=== PATIENT | male | born 1945 | race African-American/Black ===

== ENCOUNTER 2020-02-26 05:52 | Inpatient (IN) | payer OTHER ==
[2020-02-24 12:47] VITALS: BMI 30.1
--- OUTSIDE RECORDS SUMMARY | 2020-02-26 05:56 | XMS ---
:1945 Author Organization [facility] Support Name Relationship Address Phone RE Unavailable Unavailable Unavailable [employer] [address] [phone] [place] [address] Re-disclosure Warning The records that you are about to access may contain information from federally- assisted alcohol or drug abuse programs. If such information is present, then the following federally mandated warning applies: This information has been disclosed to you from records protected by federal confidentiality rules (42 CFR part 2). The federal rules prohibit you from making any further disclosure of this information unless further disclosure is expressly permitted by the written consent of the person to whom it pertains or as otherwise permitted by 42 CFR part 2. A general authorization for the release of medical or other information is NOT sufficient for this purpose. The Federal rules restrict any use of the information to criminally investigate or prosecute any alcohol or drug abuse patient.The records that you are about to access may contain highly sensitive health information, the redisclosure of which is protected by Article 27-F of the [facility] Public Health law. If you continue you may haveaccess to information: Regarding HIV / AIDS; Provided by facilities licensed or operated by the [facility] Office of Mental Health; or Provided by the [facility] Office for People With Developmental Disabilities. If such information is present, then the following [facility] mandated warning applies: This information has been disclosed to you from confidential records which are protected by state law. State law prohibits you from making any further disclosure of this information without the specific written consent of the person to whom it pertains, or as otherwise permitted by law. Any unauthorized further disclosure in violation of state law may result in a fine or fci sentence or both. A general authorization for the release of medical or other information is NOT sufficient authorization for further disclosure. Insurance Providers Payer name Policy type Policy ID Covered Covered democrat's Policy P kane / Coverage democrat ID relationship to [employer] ormation type padron HIP MEDICARE [id number] 1 Results ID Date Data Source [id number] 02/21/2020 11:18:00 AM EDT [facility] Name Value Range Interpretation Description Data Sup porting Code Source(s) Document(s ) SARS [facility] coronavirus 2 RNA This lab was ordered by [facility] and reported by [facility]. Procedure
[2020-02-26] MEDS ORDERED: CEFAZOLIN 2 GM/D5W 2 GM/50 ML ML IVPB ONE (06:33)
[2020-02-26] MEDS ORDERED: VANCOMYCIN 1 GRAM (PRE-DOCKED) 1,000 MG/250 ML BAG IVPB ONE (06:33)
[2020-02-26 07:23] LABS: ALBUMIN 4.1 g/dl (3.4-5.0); BLOOD UREA NITROGEN 13.5 mg/dL (7-18); CALCIUM 9.2 mg/dL (8.5-10.1); POTASSIUM 4.2 mmol/L (3.5-5.1)
[2020-02-26 07:28] LABS: BILIRUBIN,TOTAL 0.6 mg/dL (0.2-1); CREATININE 1.1 mg/dL (0.55-1.3); TOT PROT 7.5 g/dl (6.4-8.2)
[2020-02-26] MEDS ORDERED: MIDAZOLAM HCL 2 MG/2 ML SINGLE DOSE VIAL ONE (07:28)
[2020-02-26] MEDS ORDERED: BUPIVACAINE LIPOSOME/PF (EXPAREL) 266 MG/20 ML VIAL ONE ×2 (07:28→07:41)
[2020-02-26] MEDS ORDERED: SODIUM CHLORIDE 0.9% P/F 10 ML VIAL IJ ONE (07:28)
[2020-02-26] MEDS ORDERED: BUPIVACAINE HCL/PF 0.5% (5 MG/ML) 30 ML VIAL IJ ONE (07:28)
[2020-02-26] MEDS ORDERED: PROPOFOL 20 ML ONE ×2 (07:48→08:42)
[2020-02-26] MEDS ORDERED: VANCOMYCIN 1,000 MG VIAL (RESTRICTED TO ID ONLY) ONE (07:49)
[2020-02-26] MEDS ORDERED: ceFAZolin SODIUM 1 GM VIAL ONE ×2 (07:49→11:00)
[2020-02-26] MEDS ORDERED: ROPIVACAINE HCL 0.5% 30ML VIAL ONE (07:50)
--- NOTE | 2020-02-26 07:55 | HP ---
History & Physical Update - History History: No Change - Physical Physical: No Change - Assessment Assessment: No Change - Plan Plan: No Change
[2020-02-26] MEDS ORDERED: EPHEDRINE SULFATE/0.9% NACL/PF 50 MG/10 ML SYRINGE NR ONE (08:16)
[2020-02-26] MEDS ORDERED: BUPIVACAINE HCL/PF 0.5% (5MG/ML) 10 ML VIAL ONE (08:19)
[2020-02-26] MEDS ORDERED: TRANEXAMIC ACID 1000 MG/10 ML VIAL ONE (08:47)
[2020-02-26] MEDS ORDERED: KETOROLAC TROMETHAMINE 30 MG/1 ML VIAL ONE ×2 (10:42→10:49)
[2020-02-26] MEDS ORDERED: DEXAMETHASONE SOD PHOSPHATE 4 MG/1 ML VIAL ONE (11:03)
[2020-02-26] MEDS ORDERED: ONDANSETRON 4 MG/2 ML VIAL ONE ×2 (11:03→12:27)
[2020-02-26] MEDS ORDERED: LIDOCAINE HCL 1%, 10 MG/ML (20ML VIAL) ONE (11:22)
[2020-02-26] MEDS ORDERED: MAG HYDROX/AL HYDROX/SIMETH 30 ML UNIT-DOSE CUP PO PRN (11:53)
[2020-02-26] MEDS ORDERED: CELECOXIB 200 MG CAPSULE PO ONE (11:53)
[2020-02-26] MEDS ORDERED: MAGNESIUM HYDROX 2400MG/30ML ORAL SUSPENSION 30 ML CUP PO PRN (11:53)
[2020-02-26] MEDS ORDERED: ONDANSETRON 4 MG/2 ML VIAL IVPUSH PRN (11:53)
[2020-02-26] MEDS ORDERED: oxyCODONE HCL 5 MG TABLET PO PRN (11:54)
[2020-02-26] MEDS ORDERED: traMADol HCL 50 MG TABLET PO PRN (11:54)
--- NOTE | 2020-02-26 11:58 | PN ---
Progress Note (short form) - Note Progress Note: 74M s/p RIGHT total knee replacement POD #0. -Pain control: per anaesthesia team. -DVT PPx: -Chemical: ASA 81mg PO BID x 6 weeks. -Mechanical: TERI's, SCD's. -Incentive spirometry q15 min. -PT/OT/Rehab, OOB. -WBAT LLE. -Post-op Ancef x 3 doses. -f/u post-op TOV: 8 hours max. -f/u AM labs. -Diet as tolerated. -Care per medical hospitalist team. -Discharge planning: f/u [facility] [place] [facility] 7-10 days after discharge; call for appointment . -Will follow. Abhishek Garcia MD (Orthopaedic Surgery).
--- NOTE | 2020-02-26 11:59 | OP ---
Operative Note - Note: Operative Date: 02/26/20 Pre-Operative Diagnosis: Right knee DJD Operation: Right TKA Findings: Tricompartment OA Tourniquet Pressure: 350mmHg Tourniquet Time: 136 mins Implants: [employer]. Femur - 6. Tibia - 7. Poly - 13mm, PS. Patella - 27mm, symmetric Post-Operative Diagnosis: Same as Pre-op Surgeon: Abhishek Garcia [employer]: Jose F Garcia Anesthesiologist/ANIMAL CARE ATTENDANT: Ngoc Leyva Anesthesia: Spinal Specimens Removed: Bone, soft tissue Estimated Blood Loss (mls): 0 Drains & Tubes with Location: 1 x deep HemoVac Fluid Volume Replaced (mls): 2,000 (Crystalloid) Operative Report Dictated: Yes
[2020-02-26] MEDS ORDERED: LACTATED RINGERS SOLUTION 1,000 ML IV SCH (12:00)
[2020-02-26] MEDS: ACETAMINOPHEN 325 MG TABLET (FP) PO SCH ×3 (12:18→23:00)
[2020-02-26] MEDS ORDERED: oxyCODONE HCL 5 MG TABLET ONE (12:27)
[2020-02-26] MEDS: oxyCODONE HCL 5 MG TABLET PO PRN ×4 (12:32→21:57)
--- NOTE | 2020-02-26 13:09 | HP ---
CHIEF COMPLAINT: Right knee pain HISTORY OF PRESENT ILLNESS: 74 year-old male with a PMH significant for HTN, HLD, and right knee DJD s/p right total knee arthroplasty on 02/[address] Abhishek Garcia. Recent Travel: No PAST MEDICAL HISTORY: Hypertension Hyperlipidemia Bilateral knee osteoarthritis Right knee degenerative joint disease Erectile dysfunction PAST SURGICAL HISTORY: None reported Social History: Smoking: no Alcohol: no Drugs: no Family history: non-contributory Allergies No Known Allergies Allergy (Verified 02/24/20 12:36) HOME MEDICATIONS: Home Medications Medication Instructions Recorded Acetaminophen/Diphenhydramine 2 tab PO PRN PRN 02/24/20 [Tylenol Pm Ex-Strength Caplet] Sildenafil Citrate [Viagra] 100 mg PO PRN 02/24/20 REVIEW OF SYSTEMS CONSTITUTIONAL: Absent: fever, chills, diaphoresis, generalized weakness, malaise, loss of appetite, weight change HEENT: Absent: rhinorrhea, nasal congestion, throat pain, throat swelling, difficulty swallowing, mouth swelling, ear pain, eye pain, visual changes CARDIOVASCULAR: Absent: chest pain, syncope, palpitations, irregular heart rate, lightheadedness, peripheral edema RESPIRATORY: Absent: cough, shortness of breath, dyspnea with exertion, orthopnea, wheezing, stridor, hemoptysis GASTROINTESTINAL: Absent: abdominal pain, abdominal distension, nausea, vomiting, diarrhea, constipation, melena, hematochezia GENITOURINARY: Absent: dysuria, frequency, urgency, hesitancy, hematuria, flank pain, genital pain MUSCULOSKELETAL: Absent: myalgia, arthralgia, joint swelling, back pain, neck pain SKIN: Absent: rash, itching, pallor HEMATOLOGIC/IMMUNOLOGIC: Absent: easy bleeding, easy bruising, lymphadenopathy, frequent infections ENDOCRINE: Absent: unexplained weight gain, unexplained weight loss, heat intolerance, cold intolerance NEUROLOGIC: Absent: headache, focal weakness or paresthesias, dizziness, unsteady gait, seizure, mental status changes, bladder or bowel incontinence PSYCHIATRIC: Absent: anxiety, depression, suicidal or homicidal ideation, hallucinations. PHYSICAL EXAMINATION Vital Signs - 24 hr 02/26/20 02/26/20 02/26/20 06:45 11:47 11:55 Temperature 98.2 F 97.6 F Pulse Rate 70 79 82 Respiratory 18 14 14 Rate Blood Pressure 135/86 112/73 117/78 O2 Sat by Pulse 97 97 97 Oximetry (%) 02/26/20 02/26/20 02/26/20 12:00 12:05 12:20 Temperature 97.6 F Pulse Rate 82 76 76 Respiratory 14 20 20 Rate Blood Pressure 122/84 116/83 124/68 O2 Sat by Pulse 97 97 97 Oximetry (%) 02/26/20 12:33 Temperature Pulse Rate 76 Respiratory 20 Rate Blood Pressure 128/88 O2 Sat by Pulse 97 Oximetry (%) GENERAL: Awake, alert, and fully oriented, in no acute distress. HEAD: Normal with no signs of trauma. EYES: Pupils equal, round and reactive to light, extraocular movements intact, sclera anicteric, conjunctiva clear. No lid lag. LUNGS: Breath sounds equal, clear to auscultation bilaterally. No wheezes, and no crackles. No accessory muscle use. HEART: Regular rate and rhythm, normal S1 and S2 ABDOMEN: Soft, nontender, not distended UPPER EXTREMITIES: 2+ pulses, warm, well-perfused. No cyanosis. No clubbing. No peripheral edema. RLE: Surgical dressing c/d/i; hemovac drain sanguinous drainage; can extend right foot but cannot flex, sensory diminished top of foot Laboratory Results - last 24 hr 02/26/20 02/26/20 02/26/20 06:25 06:25 06:25 Sodium 139 Potassium 4.2 Chloride 106 Carbon Dioxide 27 Anion Gap 5 L BUN 13.5 Creatinine 1.1 Est GFR (CKD-EPI)AfAm 75.71 Est GFR (CKD-EPI)NonAf 65.32 Random Glucose 95 Calcium 9.2 Total Bilirubin 0.6 AST 19 ALT 29 Alkaline Phosphatase 104 Total Protein 7.5 Albumin 4.1 Blood Type B POSITIVE B POSITIVE Antibody Screen Negative Pre op Hgb 14.0 BUN 13 Cr 1.1 Intra op EBL 0 LR x 2L no painting Ancef 2g x 1; vanc 1g x 1; ancef 1g x 1 ASSESSMENT/PLAN 74 year-old male with a PMH significant for HTN, HLD, and right knee DJD s/p right total knee arthroplasty on 02/[address] Abhishek Garcia. --POD #0 --perioperative antibiotics per surgery --pain management per surgery --ASA 81mg BID --protonix --bowel regimen --incentive spirometry --Hemovac drain, monitor output Hypertension --BP stable --not on meds Hyperlipidemia --not on meds FEN Fluids: LR@125mL/hr Electrolytes: replete as indicated Nutrition: regular diet DVT prophylaxis: OOB, ambulation, SCDs, TEDs, ASA 81mg BID Physical therapy Dispo: continues to require inpatient care. Full code. Family Medical History Family History: As Documented Visit type - Medication Review Med list reviewed for High Risk Meds patients 65 and older: Yes - Emergency Visit Emergency Visit: No - New Patient This patient is new to me today: Yes Date on this admission: 02/28/20 - Critical Care Critical Care patient: No
[2020-02-26] MEDS: CEFAZOLIN 2 GM/D5W 2 GM/50 ML ML IVPB SCH ×2 (17:36→23:00)
--- NOTE | 2020-02-26 19:08 | OP ---
DATE OF OPERATION: DATE OF DICTATION: 02/26/2020 SURGEON: Ahbishek Garcia MD. POLYMERIZATION OVEN OPERATOR: Jose F Garcia MD. PREOPERATIVE DIAGNOSIS: Tricompartment osteoarthritis right knee with a fixed varus 10 degrees and fixed flexed 10 degree deformity. POSTOPERATIVE DIAGNOSIS: Tricompartment osteoarthritis right knee with a fixed varus 10 degrees and fixed flexed 10 degree deformity. OPERATION: Right cemented total knee arthroplasty (Kam posterior stabilized). ([id number]) ANESTHESIA: Conscious sedation with spinal anesthesia and peripheral nerve block. ANTIBIOTICS GIVEN: 2 g Ancef, 1 g vancomycin preoperative; 1 g Ancef at the end of the procedure. TOURNIQUET TIME: Approximately 120 minutes. INDICATION: Severe knee pain, progressive deformity as outlined above with failed conservative treatment. OPERATION DETAILS: The patient was correctly identified, brought in operating room. Right lower extremity was prepped, draped in the routine manner with Betadine scrub solution, wiped off with alcohol, then Betadine wash with associated DuraPrep applied. Timeout was called. Imaging was available for intraoperative evaluation. With the knee flexed at 70 degrees, incision was made 3 fingers above the superior pole of patella to just distal to the tibial tubercle. Incision was taken through the subcutaneous tissue. The subvastus approach was utilized by incising the proximal and medial aspect of the tibial soft tissue, coursing along the medial margin of vastus medialis, leaving approximately a 1-inch cuff of tissue for reattachment at the end of the procedure. The epimysium of vastus medialis was sharply dissected off the muscle and extended all the way to linea aspera in the intermuscular septum with digital palpation freeing the muscle off the intermuscular septum, creating a very loose, mobile quadriceps mechanism with digital dissection, the plane deep to the muscle and just superior to the suprapatellar pouch was developed. The suprapatellar pouch itself revealed significant synovitis, this was completely resected using unipolar Bovie, and the blunt hammer placed in the plane as outlined above. The knee was then flexed, paying attention to external rotation of the tibia. The patella was then subluxed laterally, exposing a severely tricompartment arthritic knee. Using the SoftoCoupong system, the tibia was cut to neutral and 90 degrees to the tibial shaft in the coronal plane that was aligned to the tibial tubercle to the middle of the talus . The bony cut was uncomplicated, taking off approximately 4 mm of bone off the proximal tibial surface. The jigs for the starter drill for the femur was seated just medial to the intracondylar notch. The saw with the alignment jig for the distal femoral cut was set at 10 degrees because that was 10 mm of bone resected off the distal femur to facilitate the fixed flexion deformity. The rest of the jigs followed with the chamfer cuts being made. Sizing was for a size 7 femur, size 6 tibia, and the patella was then cut using Hamilton line from the patellar ligament to the quadriceps tendon, a size 27-mm patellar button was utilized. The flexion gap and extension gaps were even. With the trialing components, the limbus easily brought into full extension and complete stability was found with the 13-mm polyethylene spacer in full extension and full flexion. The tension of the medial collateral structures were measured using the insertion of a Stratton elevator into the interspace in flexion. This was tight, afforded easy flexion. Posterior osteophyte at the back of the femur was resected appropriately. Once we were happy with the trial components and their seating, the bone bed was thoroughly lavaged with pulsed lavage. Cementing was in 1 stage, tibia followed by femur followed by patella button. The cement cured, extraneous cement was removed. The tissues were washed out thoroughly. The posterior stabilized polyethylene size 13 mm inserted, and once again trialing revealed a negative thumb test test for the tracking of the patella. No instability of the coronal or sagittal plane noted. Shock test negative. Closure: Soft tissue of the tibia with number 1 Vicryl, this extended right around to vastus medialis, interrupted number 1 Vicryl sutures. The knee was again flexed and extended with full range of movement noted and patellar tracking normal. Closure of the rest of the tissues: subcutaneous tissue with number 1 Vicryl, subcutaneous with 3-0 Monocryl with Steri-Strips, bandage, 1/8 inch Hemovac to the subvastus bed medially the drain brought out laterally. No complications. Operation went extremely well. MD HUMBERTO Sow/[id number] [facility]
[2020-02-26] MEDS: ASPIRIN COATED 81 MG TABLET.EC PO SCH (21:52)
[2020-02-26] MEDS: SENNOSIDES/DOCUSATE COMBO (SENNA PLUS) TABLET (UD) PO SCH (21:52)
[2020-02-27] MEDS: CEFAZOLIN 2 GM/D5W 2 GM/50 ML ML IVPB SCH (04:24)
[2020-02-27] MEDS: ACETAMINOPHEN 325 MG TABLET (FP) PO SCH ×3 (06:14→17:26)
[2020-02-27] MEDS: oxyCODONE HCL 5 MG TABLET PO PRN ×5 (06:14→21:20)
--- NOTE | 2020-02-27 07:37 | PN ---
Progress Note (short form) - Note Progress Note: ORTHOPAEDIC SURGERY POD #1 s/p Right TKA Pt seen and examined. Doing well post op. Pain well controlled. Has been oob ambulating with PT. Passing flatus. Voidinging spontaneously. Tolerating diet. Denies cp/sob, n/v/d. Last Vital Signs Temp Pulse Resp BP Pulse Ox 98.1 F 82 18 120/72 97 02/27/20 04:00 02/27/20 04:00 02/27/20 04:00 02/27/20 04:00 02/27/20 04:00 GEN: A&0x3, NAD CV: RRR Lungs: Unlabored respirations on room air ABD: soft, non-distended, non-tender. Right knee: hemovac in place with 105 sanguinous drainage in reservoir. Surgical dressing c/d/i. Compartments soft, no calf tenderness or swelling noted b/l. TEDs/SCDS in place b/l. 4/5 plantar flexion b/l, 2/4 dorsiflexion (dr. mckeon aware). 5/5 EHl/FHL b/l, SILT b/l les. A/P: 74 y/o M with history of Right knee OA, POD #1 s/p Rt TKA. RLE neuropraxia? -Pain control as ordered -DVT PPx: Chemical: ASA 81 mg po BID x 6 weeks, Mechanical: TERI's, SCD's -Incentive Spirometry -PT/OT/Rehab, OOB -WBAT RLE -Keep drain in place, monitor I&Os -f/u am labs -Home meds ordered as appropriate -Care per medical hospitalist team. Above plan discussed with Dr. Jose F Mckeon Problem List - Problems (1) Osteoarthritis of right knee Code(s): M17.11 - UNILATERAL PRIMARY OSTEOARTHRITIS, RIGHT KNEE
[2020-02-27 08:26] LABS: CALCIUM 8.1 mg/dl (8.5-10); CREATININE 1.1 mg/dl (0.55-1.3); POTASSIUM 5.2 mmol/L (3.5-5.1)
[2020-02-27 08:29] LABS: HEMATOCRIT 30.3 % (35.4-49); HEMOGLOBIN 9.7 GM/dl (11.7-16.9); MCH 28.2 pg (25.7-33.7); MEAN CELL VOLUME 88.2 fl (80-96); MEAN PLT VOLUME 9.9 fl (7.5-11.1); PLATELET COUNT 179 K/MM3 (134-434); RBC 3.44 M/mm3 (4.00-5.60); RDW 12.3 % (11.9-15.9); WHITE BLOOD COUNT 9.1 K/mm3 (4.0-10.8)
[2020-02-27] MEDS: SENNOSIDES/DOCUSATE COMBO (SENNA PLUS) TABLET (UD) PO SCH ×2 (09:18→21:21)
[2020-02-27] MEDS: PANTOPRAZOLE 40 MG TABLET PO SCH (09:18)
[2020-02-27] MEDS: ASPIRIN COATED 81 MG TABLET.EC PO SCH ×2 (09:18→21:21)
--- NOTE | 2020-02-27 13:09 | PN ---
Progress Note (short form) - Note Progress Note: ANESTHESIA POSTOP 74 yo Male POD#1 s/p TKA, spinal and PNB Patient sitting in chair. Pain adequately controlled. Tolerating PO. VSS, Afebrile Continue current care. Encouraged IS and active participation in PT. No anesthetic complication
--- NOTE | 2020-02-27 15:19 | PN ---
Physical Exam: SUBJECTIVE: Patient seen and examined. Concerned about the lack of sensation in the right foot, cannot flex the right foot. OBJECTIVE: Vital Signs Period Temp Pulse Resp BP Sys/Diego Pulse Ox Last 24 Hr 97.9 F-98.7 F 63-95 18-18 112-130/61-80 94-99 GENERAL: Awake, alert, and fully oriented, in no acute distress. HEAD: Normal with no signs of trauma. EYES: Pupils equal, round and reactive to light, extraocular movements intact, sclera anicteric, conjunctiva clear. No lid lag. LUNGS: Breath sounds equal, clear to auscultation bilaterally. No wheezes, and no crackles. No accessory muscle use. HEART: Regular rate and rhythm, normal S1 and S2 ABDOMEN: Soft, nontender, not distended UPPER EXTREMITIES: 2+ pulses, warm, well-perfused. No cyanosis. No clubbing. No peripheral edema. RLE: Surgical dressing c/d/i; hemovac drain sanguinous fluid; can extend right foot but cannot flex, sensory diminished top of foot Laboratory Results - last 24 hr 02/27/20 02/27/20 07:04 07:04 WBC 9.1 RBC 3.44 L Hgb 9.7 L Hct 30.3 L MCV 88.2 MCH 28.2 MCHC 32.0 RDW 12.3 Plt Count 179 MPV 9.9 Sodium 136 Potassium 5.2 H Chloride 106 Carbon Dioxide 24 Anion Gap 6 L BUN 18.0 Creatinine 1.1 Est GFR (CKD-EPI)AfAm 75.71 Est GFR (CKD-EPI)NonAf 65.32 Random Glucose 140 H Calcium 8.1 L Active Medications Generic Name Dose Route Start Last Admin Trade Name Freq PRN Reason Stop Dose Admin Acetaminophen 650 mg 02/26/20 12:00 02/27/20 12:17 Tylenol - PO 02/29/20 11:59 650 mg Q6H JOSÉ ANTONIO Administration Al Hydroxide/Mg Hydroxide 30 ml 02/26/20 11:53 Mylanta Oral Suspension - PO Q4H PRN DYSPEPSIA Aspirin 81 mg 02/26/20 22:00 02/27/20 09:18 Ecotrin - PO 81 mg BID JOSÉ ANTONIO Administration Magnesium Hydroxide 30 ml 02/26/20 11:53 Milk Of Magnesia - PO PRN PRN CONSTIPATION Ondansetron HCl 4 mg 02/26/20 11:53 02/26/20 12:28 Zofran Injection IVPUSH 4 mg Q6H PRN Administration NAUSEA Oxycodone HCl 10 mg 02/26/20 11:54 02/27/20 12:16 Roxicodone - PO 10 mg Q3H PRN Administration PAIN LEVEL 6-10 Oxycodone HCl 5 mg 02/26/20 11:54 Roxicodone - PO Q3H PRN PAIN LEVEL 1-5 Pantoprazole Sodium 40 mg 02/27/20 10:00 02/27/20 09:18 Protonix - PO 40 mg DAILY JOSÉ ANTONIO Administration Senna/Docusate Sodium 2 tablet 02/26/20 22:00 02/27/20 09:18 Pericolace - PO 2 tablet BID JOSÉ ANTONIO Administration Tramadol HCl 50 mg 02/26/20 11:54 Ultram - PO Q3H PRN PAIN LEVEL 6-10 Pre op Hgb 14.0 BUN 13 Cr 1.1 Intra op EBL 0 LR x 2L no painting Ancef 2g x 1; vanc 1g x 1; ancef 1g x 1 ASSESSMENT/PLAN 74 year-old male with a PMH significant for HTN, HLD, and right knee DJD s/p right total knee arthroplasty on 02/[address] Abhisehk Garcia. --POD #1 --perioperative antibiotics complete --pain management per surgery --ASA 81mg BID --protonix --bowel regimen --incentive spirometry --Hemovac drain, monitor output Hypertension --BP stable --not on meds Hyperlipidemia --not on meds FEN Fluids: PO intake adequate Electrolytes: replete as indicated Nutrition: regular diet DVT prophylaxis: OOB, ambulation, SCDs, TEDs, ASA 81mg BID Physical therapy Dispo: continues to require inpatient care. Full code. Visit type - Emergency Visit Emergency Visit: No - New Patient This patient is new to me today: No - Critical Care Critical Care patient: No - Discharge Referral Referred to [facility] Med [facility].C[facility] No - Medication Review Med list reviewed for High Risk Meds patients 65 and older: Yes
[2020-02-28] MEDS: ACETAMINOPHEN 325 MG TABLET (FP) PO SCH ×2 (00:17→05:58)
--- NOTE | 2020-02-28 00:35 | ED.PROV ---
Physicial Exam I saw and examined the patient. I was called to the floor to examine this 74-year-old male who is 1 day postop. Patient is complaining of some numbness on the dorsum of his foot and inability to fully dorsiflex his ankle. Patient had no other complaints. Patient said that he has had the problem since the surgery was done on Monday. Patient said this is nothing new and he has told his orthopedist about it. Patient was concerned he did not want to go home until his orthopedist addressed the issue. Patient otherwise denied any other neurological complaints. On exam patient was unable to dorsiflex his ankle and reported some subjective numbness to touch on the dorsum of the foot and anterior portion of the leg. Patient was reassured and said that it was important that he address the issue with his orthopedist in the morning - Vital Signs Last Vital Signs Temp Pulse Resp BP Pulse Ox 98.5 F 94 H 18 115/71 98 02/27/20 21:00 02/27/20 21:00 02/27/20 21:00 02/27/20 21:00 02/27/20 21:00
[2020-02-28] MEDS: oxyCODONE HCL 5 MG TABLET PO PRN (03:49)
[2020-02-28 06:33] VITALS: BP 114/65; PULSE 85; TEMP 98.8
[2020-02-28] MEDS: ASPIRIN COATED 81 MG TABLET.EC PO SCH (09:58)
[2020-02-28] MEDS: SENNOSIDES/DOCUSATE COMBO (SENNA PLUS) TABLET (UD) PO SCH (09:58)
[2020-02-28] MEDS: PANTOPRAZOLE 40 MG TABLET PO SCH (09:58)
[2020-02-28 10:20] LABS: HEMATOCRIT 28.4 % (35.4-49); HEMOGLOBIN 9.2 GM/dl (11.7-16.9); MCH 28.5 pg (25.7-33.7); MCHC 32.3 g/dl (32.0-35.9); MEAN CELL VOLUME 88.1 fl (80-96); MEAN PLT VOLUME 9.3 fl (7.5-11.1); PLATELET COUNT 167 K/MM3 (134-434); RBC 3.22 M/mm3 (4.00-5.60); RDW 12.6 % (11.9-15.9); WHITE BLOOD COUNT 9.4 K/mm3 (4.0-10.8)
--- NOTE | 2020-02-28 13:03 | PN ---
Progress Note (short form) - Note Progress Note: 74M s/p RIGHT total knee replacement POD #2. (+) RLE foot drop identified after index primary knee replacement. Pain well controlled. Pt. denies overnight history of headaches, chest pain, shortness of breath, nausea, vomiting, chills, & sweats. (+) Voiding; (+) Flatus; (-) BM. Ambulated with PT today. All labs and vitals reviewed. PE: AAO x 3, NAD. R-Knee: Dressing C/D/I. Able to SLR. AROM: 0-90 deg KF. Drain removed on rounds. Palpation of fibular neck & head non-tender. RLE M: HF/HE/KF/KE/APF intact; ADF/GTE absent 0/5; Peroneus longus & brevis absent 0/5. RLE S: -Femoral nerve distribution: intact. -Superficial peroneal nerve distribution: Insensate. -Deep peroneal nerve distribution: Insensate. -Tibial nerve distribution: Normal, intact. 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 -Rolled towel under right thigh (above knee) to relax Sciatic nerve. -Offload heels with rolled towels under ankles to avoid heel ulcers/pressure sores. -(+) RLE AFO splint for foot drop to prevent equinus contracture of ankle. -Pain control. -DVT PPx: -Chemical: ASA 81mg PO BID x 6 weeks. -Mechanical: TERI's, SCD's. -Diet as tolerated. -Incentive spirometry q15 min. -PT/OT/Rehab, OOB. -WBAT RLE. -Continue Cymbalta 30mg PO daily for neuropraxia. -Care per medical hospitalist team. -Discharge planning: f/u [facility] [place] [facility] 03/05/2020; call for appointment . -Will follow. Abhishek Garcia MD (Orthopaedic Surgery).
--- NOTE | 2020-02-28 13:33 | DS ---
Physical Exam: SUBJECTIVE: Patient seen and examined oob to chair. Dr. Abhishek Garcia present, pulled hemovac drain. OBJECTIVE: Vital Signs Period Temp Pulse Resp BP Sys/Diego Pulse Ox Last 24 Hr 97.6 F-99.0 F 71-94 18-18 114-127/61-71 96-99 PHYSICAL EXAM GENERAL: Awake, alert, and fully oriented, in no acute distress. HEAD: Normal with no signs of trauma. EYES: Pupils equal, round and reactive to light, extraocular movements intact, sclera anicteric, conjunctiva clear. No lid lag. LUNGS: Breath sounds equal, clear to auscultation bilaterally. No wheezes, and no crackles. No accessory muscle use. HEART: Regular rate and rhythm, normal S1 and S2 ABDOMEN: Soft, nontender, not distended UPPER EXTREMITIES: 2+ pulses, warm, well-perfused. No cyanosis. No clubbing. No peripheral edema. RLE: Surgical dressing c/d/i; hemovac drain pulled; can extend right foot but cannot flex, sensory diminished top of foot LABS Laboratory Results - last 24 hr 02/28/20 10:15 WBC 9.4 RBC 3.22 L Hgb 9.2 L Hct 28.4 L MCV 88.1 MCH 28.5 MCHC 32.3 RDW 12.6 Plt Count 167 MPV 9.3 HOSPITAL COURSE: Date of Admission:02/26/20 Date of Discharge: 02/28/20 ASSESSMENT/PLAN 74 year-old male with a PMH significant for HTN, HLD, and right knee DJD s/p right total knee arthroplasty on 02/[address] Abhishek Garcia. --perioperative antibiotics complete --pain well-managed with PO meds --ASA 81mg BID x 6 weeks --will need ortho shoe to keep right foot flexed, outpatient followup with Dr. Garcia Hypertension --BP stable --not on meds Hyperlipidemia --not on meds Minutes to complete discharge: 35 Discharge Summary Problems reviewed: Yes Reason For Visit: BILATERAL OSTEOARTHRITIS Current Active Problems Osteoarthritis of right knee (Acute) Condition: Improved - Instructions Diet, Activity, Other Instructions: Dr. Garcia Discharge Instructions for Knee Replacement Post Operative Instructions Physical activity Physical Therapist will come to your home for the first 5 days. You will be set up with outpatient PT at your first post-operative visit. Use assistive devices for ambulation at all times. Weight bearing as tolerated on your surgical side. Do not put pillow under knee. May put pillow under heel. Wound care Leave your surgical dressing in place. Do not change the dressing until seen by your surgeon in the office. No baths or showers. Do not submerge your incision. Do not apply any ointments or lotions to your incision. Please call the office i f your dressing is soiled/dirty or is falling off. Apply Graduated Compression Stockings (TEDS) to both lower extremities - remove daily for hygiene ONLY. Diet There are no dietary restrictions. Eat healthy, high-fiber foods. Drink 6 to 8 glasses of liquid each day. This will assist in keeping your bowels are regular. Pain management Any pain prescription medication ordered should be taken as prescribed for moderate to severe pain. Do not take additional Tylenol while taking Percocet. Take Aspirin 81 mg two times a day for a total of 6 weeks to prevent blood clots. Call Dr. Garcia for any of the following: Severe pain not relieved by medication Fever of 101 or higher Excessive bleeding or drainage on dressing Inability to urinate If you experience chest pain or shortness of breath, please seek emergency care immediately. Please call the office at to confirm your post-op appointment for the week following surgery. Referrals: Abhishek Garcia MD [Staff Physician] - Disposition: HOME - Home Medications Comprehensive Discharge Medication List: Ambulatory Orders Acetaminophen/Diphenhydramine [Tylenol Pm Ex-Strength Caplet] 2 tab PO PRN PRN 02/24/20 Sildenafil Citrate [Viagra] 100 mg PO PRN 02/24/20 Oxycodone HCl/Acetaminophen [Percocet 5-325 mg Tablet] 1 tab PO Q6H #20 tablet MDD 4 02/28/20 Prescription Drug Monitoring Program (I-STOP) results: I-STOP not reviewed This patient is new to me today: No Emergency Visit: No Critical Care patient: No - Discharge Referral Referred to [facility] Med [facility] No
--- NOTE | 2020-02-28 16:14 | PATH ---
Surgical Pathology Report Patient Name: RAYSHAWN WARD Med. Rec. #: [id number] /Age/Gender: 1945 (Age: 74) / M Account: [id number] Location: [facility] MED-SURG Taken: 02/26/2020 Received: 02/26/2020 Reported: 02/28/2020 Physicians: Abhishek Garcia M.D. Specimen(s) Received RIGHT KNEE BONES Clinical History Bilateral knee osteoarthritis Final Diagnosis BONE, KNEE, RIGHT, TOTAL KNEE REPLACEMENT: BONE WITH DEGENERATIVE JOINT DISEASE. Electronically Signed Penelope Angeles M.D. Gross Description Received in formalin labeled "right knee bones," is a 14.5 x 1.0 x 2.3 cm aggregate of multiple portions of bone and soft tissue. The tibial plateau measures 8.8 x 6.5 x 1.8 cm. No discrete areas of eburnation are identified. The articular surfaces are ray-yellow and focally granular. The underlying trabecular bone is yellow and hard. Women Specialist sections are submitted in one cassette, following decalcification. /02/26/2020 [facility]02/26/2020
== END 2020-02-28 14:00 | disposition home health service (06) | DRG 470 ==
LOC: FM/S 05:52
PROVIDERS: ADMIT Orthopaedic Surgery Orthopaedic Surgery of the Spine; ATTEND Orthopaedic Surgery Orthopaedic Surgery of the Spine
PROC: 0SRC0J9 Replacement of Right Knee Joint with Synthetic Substitute, Cemented, Open Approach (ICD-10-PCS; principal; 2020-02-26 09:13)
DX: M17.11 Unilateral primary osteoarthritis, right knee (principal); G97.82 Other postprocedural complications and disorders of nervous system; I10 Essential (primary) hypertension; E78.5 Hyperlipidemia, unspecified; R20.0 Anesthesia of skin; N52.9 Male erectile dysfunction, unspecified; Y83.9 Surgical procedure, unspecified as the cause of abnormal reaction of the patient, or of later complication, without mention of misadventure at the time of the procedure
CPT/HCPCS: 36415; 73560-TC-RT-FY; 80048; 80053; 85027; 86850; 86900; 86901; 88305-TC; 88311-TC; 94760; 97010-GP; 97116-GP; 97163-GP